=== PATIENT | female | born 2000 | race Caucasian/White ===

== ENCOUNTER 2024-02-29 16:54 | Inpatient (IN) | payer SELFPAY ==
[~2024-02-29] VITALS: Ht 167.6 cm; Wt 71.7 kg
[2024-02-29 16:58] VITALS: O2SAT 100
[2024-02-29] MEDS ORDERED: DEXTROSE 50% WATER 50ML SYRINGE IV PRN ×3 (17:30→22:15)
[2024-02-29 18:02] LABS: BG BASE EXCESS -21.9 mmol/L (-2.0-3.0); BG CARBOXYHEMOGLOBIN 0.2 % (0.5-1.5); BG DEOXYHEMOGLOBIN 1.4 % (0.0-5.0); BG FRACTION INSPIRED OXYGEN 21; BG HCO3 ACT 4.6 mmol/L (21.0-28.0); BG OXYGEN SATURATION 98.6 % (94.0-98.0); BG OXYHEMOGLOBIN 98.4 % (94.0-98.0); BG PCO2 13.8 mmHg (32.0-45.0); BG PH 7.139 (7.350-7.450); BG PO2 142.4 mmHg (83.0-108.0); BG SAMPLE SITE LEFT BRACHIAL; BG TOTAL HEMOGLOBIN 15.6 g/dL (12.0-16.0); BG VENT MODE ROOM AIR
[2024-02-29] MEDS: BLOOD SUGAR DIAGNOSTIC STRIP TEST SCH ×2 (18:53→22:15)
[2024-02-29] MEDS: SODIUM CHLORIDE 0.9% 1000ML BAG (SEPSIS BOLUS) IV ONE (18:59)
[2024-02-29] MEDS: BLOOD SUGAR DIAGNOSTIC STRIP TEST PRN (18:59)
[2024-02-29 19:31] LABS: BASOPHILS % 0.5 % (0.0-2.0); DIFFERENTIAL COMMENT 0; EOSINOPHILS % 0.3 % (0.0-5.0); HEMATOCRIT. 48.4 % (36.0-48.0); HEMOGLOBIN. 15.2 g/dL (12.0-16.0); LYMPHOCYTES % 23.9 % (20.0-50.0); MEAN CORPUSCULAR HGB CONC 31.5 g/dL (31.0-37.0); MEAN CORPUSCULAR VOLUME 107.8 fL (81.0-99.0); MEAN PLATELET VOLUME 8.6 fl (7.4-10.4); MONOCYTES % 5.4 % (2.0-8.0); NEUTROPHILS % 69.9 % (40.0-76.0); PLATELET 360 x1000/uL (130-400); RED BLOOD CELL COUNT 4.49 mill/uL (4.2-5.4); RED CELL DISTRIBUTION WIDTH 14.6 % (11.6-14.6); WHITE BLOOD COUNT 13.1 x1000/uL (4.5-11.0)
[2024-02-29 19:43] LABS: CHLORIDE 95 mEq/L (98-107); SODIUM 125 mEq/L (136-145)
[2024-02-29 19:44] LABS: CALCIUM 10.2 mg/dL (8.7-10.4)
[2024-02-29 19:49] LABS: CREATININE 1.4 mg/dL (0.6-1.0); UREA NITROGEN BLOOD 25 mg/dL (9-23)
[2024-02-29 19:51] LABS: BETA HYDROXYBUTYRATE 12.7 mMol/L (0.0-0.3); PHOSPHORUS 5.8 mg/dL (2.5-4.9)
[2024-02-29 19:59] LABS: ETHANOL BLOOD < 10 mg/dL (<10)
[2024-02-29 20:01] LABS: CARBON DIOXIDE < 10 mEq/L (21-32); GLUCOSE 670 mg/dL (70-105); POTASSIUM 6.2 mEq/L (3.5-5.1)
[2024-02-29] MEDS: ONDANSETRON HCL 4MG/2ML INJ IV ONE (20:11)
[2024-02-29] MEDS ORDERED: INSULIN REGULAR 100U/100ML PMX 100 ML IV SCH ×2 (20:30→22:15)
[2024-02-29] MEDS: INSULIN REGULAR 100U/100ML PMX 100 ML IV SCH ×2 (20:49→22:30)
[2024-02-29] MEDS: KETOROLAC 15MG/ML VIAL IV ONE (20:53)
[2024-02-29] MEDS: LORAZEPAM 2MG/ML INJ IV ONE (21:15)
[2024-02-29 22:14] LABS: *AMPHETAMINES SCREEN URINE NEGATIVE (NEGATIVE); *BARBITURATES SCREEN URINE NEGATIVE (NEGATIVE); *BENZODIAZEPINES SCREEN URINE NEGATIVE (NEGATIVE); *COCAINE SCREEN URINE NEGATIVE (NEGATIVE); CANNABINOID URINE SCREEN NEGATIVE (NEGATIVE); ECSTASY MDMA SCREEN URINE NEGATIVE (NEGATIVE); METHADONE URINE SCREEN NEGATIVE (NEGATIVE); OPIATES URINE SCREEN NEGATIVE (NEGATIVE); PHENCYCLIDINE URINE SCREEN NEGATIVE (NEGATIVE)
[2024-02-29] MEDS ORDERED: GUAIFENESIN 200MG/10ML SUGAR FREE UDC PO PRN (22:15)
[2024-02-29] MEDS ORDERED: ONDANSETRON HCL 4MG/2ML INJ IV PRN (22:15)
[2024-02-29] MEDS ORDERED: ACETAMINOPHEN 325MG TABLET PO PRN ×2 (22:15)
[2024-02-29] MEDS: SODIUM CHLORIDE 0.9% 1,000 ML IV SCH (22:15)
[2024-02-29] MEDS ORDERED: DOCUSATE SODIUM 100MG CAPSULE PO PRN (22:15)
[2024-02-29] MEDS ORDERED: KETOROLAC 15MG/ML VIAL IV PRN (22:15)
[2024-02-29] MEDS ORDERED: IPRATROPIUM/ALBUTEROL 0.5-3(2.5)MG/3ML NEB NEB PRN (22:15)
[2024-02-29] MEDS ORDERED: MAGNESIUM/ALUMINUM HYDROXIDE/SIMETHICONE 30ML UDC PO PRN (22:15)
[2024-02-29] MEDS ORDERED: NITROGLYCERIN 0.4MG TABLET SL SL PRN (22:15)
[2024-02-29] MEDS ORDERED: NA PHOS,M-B/NA PHOS,DI-BA ENEMA 118ML PR PRN (22:15)
[2024-02-29] MEDS ORDERED: CLONIDINE 0.1MG TABLET PO PRN (22:15)
[2024-03-01 00:08] LABS: IRON 96 ug/dL (50-170)
[2024-03-01 00:11] LABS: TOTAL IRON BINDING CAPACITY 311 ug/dl (250-425)
[2024-03-01 00:13] LABS: T4 FREE 0.98 ng/dL (0.89-1.76); THYROID STIMULATING HORMONE 0.48 uIU/mL (0.55-4.78)
[2024-03-01 00:19] LABS: FOLIC ACID (FOLATE) SERUM > 20.00 ng/mL (>5.38)
[2024-03-01] MEDS: MVI, ADULT NO.1 10 ML, FOLIC ACID 1 MG, THIAMINE HCL 100 MG in SODIUM CHLORIDE 0.9% 1,0... IV SCH (03:38)
[2024-03-01 04:59] LABS: BASOPHILS % 0.4 % (0.0-2.0); EOSINOPHILS % 0.2 % (0.0-5.0); HEMATOCRIT. 43.1 % (36.0-48.0); HEMOGLOBIN. 14.8 g/dL (12.0-16.0); LYMPHOCYTES % 31.5 % (20.0-50.0); MEAN CORPUSCULAR HGB CONC 34.2 g/dL (31.0-37.0); MEAN CORPUSCULAR VOLUME 99.2 fL (81.0-99.0); MONOCYTES % 6.9 % (2.0-8.0); PLATELET 406 x1000/uL (130-400); RED BLOOD CELL COUNT 4.35 mill/uL (4.2-5.4); RED CELL DISTRIBUTION WIDTH 14.2 % (11.6-14.6); WHITE BLOOD COUNT 14.4 x1000/uL (4.5-11.0)
[2024-03-01 05:12] LABS: CHLORIDE 103 mEq/L (98-107); POTASSIUM 4.5 mEq/L (3.5-5.1)
[2024-03-01 05:14] LABS: CALCIUM 9.7 mg/dL (8.7-10.4)
[2024-03-01 05:19] LABS: GLUCOSE 150 mg/dL (70-105); UREA NITROGEN BLOOD 26 mg/dL (9-23)
[2024-03-01 05:21] LABS: ALANINE AMINOTRANSFERASE 15 IU/L (10-49); ALBUMIN 4.7 g/dL (3.2-4.8); ASPARTATE AMINOTRANSFERASE 10 IU/L (<34); BILIRUBIN TOTAL 0.3 mg/dL (0.1-1.0); PHOSPHORUS 3.8 mg/dL (2.5-4.9)
[2024-03-01 05:22] LABS: PROTEIN TOTAL 7.8 g/dL (6.0-8.3)
[2024-03-01 05:29] LABS: SODIUM 135 mEq/L (136-145)
[2024-03-01 05:31] LABS: CARBON DIOXIDE < 10 mEq/L (21-32)
[2024-03-01] MEDS: DEXT 5%/0.9% NACL 1,000 ML IV ONE (05:40)
[2024-03-01] MEDS: ENOXAPARIN 40MG/0.4ML SYR SUBCUT SCH (09:00)
[2024-03-01] MEDS: PANTOPRAZOLE SODIUM 40 MG/VIAL IV SCH (09:00)
[2024-03-01 09:29] LABS: CHLORIDE 108 mEq/L (98-107); POTASSIUM 4.1 mEq/L (3.5-5.1); SODIUM 138 mEq/L (136-145)
[2024-03-01 09:30] LABS: CALCIUM 9.1 mg/dL (8.7-10.4); CARBON DIOXIDE 16 mEq/L (21-32)
[2024-03-01 09:35] LABS: CREATININE 0.9 mg/dL (0.6-1.0); GLUCOSE 125 mg/dL (70-105); UREA NITROGEN BLOOD 25 mg/dL (9-23)
[2024-03-01 09:37] LABS: PHOSPHORUS 3.2 mg/dL (2.5-4.9)
[2024-03-01] MEDS: BLOOD SUGAR DIAGNOSTIC STRIP TEST SCH (13:00)
[2024-03-01] MEDS ORDERED: DEXTROSE 50% WATER 50ML SYRINGE IV PRN (13:00)
[2024-03-01] MEDS: INSULIN LISPRO 100 UNITS/ML SUBCUT SCH ×2 (13:20→18:12)
[2024-03-01] MEDS: INSULIN GLARGINE 100 UNITS/ML SUBCUT SCH (14:00)
[2024-03-01 16:00] VITALS: BP 128/69; PULSE 80; RESP 18; TEMP 36.72516; O2SAT 98
[2024-03-01 18:47] VITALS: BP 126/78; PULSE 99; RESP 18; TEMP 36.7516
[2024-03-01 20:00] VITALS: BP 114/80; PULSE 97; RESP 19; TEMP 36.55848; O2SAT 98
[2024-03-02] VITALS: BP 127/82; PULSE 94; RESP 19; TEMP 36.55848; O2SAT 98
[2024-03-02] MEDS: KETOROLAC 15MG/ML VIAL IV PRN (02:56)
[2024-03-02] MEDS: ZOLPIDEM TARTRATE 5MG TABLET PO PRN (03:07)
[2024-03-02 04:00] VITALS: BP 122/79; PULSE 96; RESP 19; TEMP 36.44736; O2SAT 98
[2024-03-02] MEDS ORDERED: DEXTROSE 50% WATER 50ML SYRINGE IV PRN (07:30)
[2024-03-02] MEDS: INSULIN LISPRO 100 UNITS/ML SUBCUT SCH (07:50)
[2024-03-02 08:00] VITALS: BP 114/81; PULSE 101; RESP 20; TEMP 35.61396; O2SAT 98
[2024-03-02] MEDS: INSULIN GLARGINE 100 UNITS/ML SUBCUT SCH (10:00)
[2024-03-02] MEDS: INSULIN GLARGINE 100 UNITS/ML SUBCUT NR (10:11)
[2024-03-02 12:00] VITALS: BP 98/65; PULSE 87; RESP 19; TEMP 36.50292; O2SAT 97
[2024-03-02] MEDS: BLOOD SUGAR DIAGNOSTIC STRIP TEST SCH (12:20)
[2024-03-02] MEDS: DIPHENHYDRAMINE 25MG CAPSULE PO PRN (16:09)
[2024-03-02 20:00] VITALS: BP 127/82; PULSE 102; RESP 20; TEMP 36.00288; TEMP 37.00296; O2SAT 100
== END 2024-03-02 21:53 | disposition left against medical advice (07) | DRG 420 ==
LOC: ER 16:54 → MICUSO 21:16 → EDBEDREQSVC 21:35 → EDBEDREQTM 21:35 → EDBEDREQ 21:35 → EDBEDREQSVC 03-01 13:02 → 5WST 03-01 13:27 → 6EST 03-01 16:04
PROVIDERS: ADMIT Internal Medicine; ATTEND Internal Medicine
DX: E11.10 Type 2 diabetes mellitus with ketoacidosis without coma (principal); N17.9 Acute kidney failure, unspecified; E83.39 Other disorders of phosphorus metabolism; E87.1 Hypo-osmolality and hyponatremia; E87.5 Hyperkalemia; Z53.29 Procedure and treatment not carried out because of patient's decision for other reasons; Z79.4 Long term (current) use of insulin
CPT/HCPCS: 36415; 36600; 80048; 80051; 80053; 80305; 80320; 82010; 82375; 82607; 82746; 82805; 82962; 83036; 83540; 83550; 83735; 83930; 84100; 84439; 84443; 85025; 93970; 99291; J1650; J1815; J1885; J2405; J2470; J3411; J3490; J7030; Q0163; G0480